=== PATIENT | female | born 2000 | race Hispanic/Latino ===

== ENCOUNTER 2023-01-18 16:49 | Emergency (ER) | payer BC ==
[~2023-01-18] VITALS: Ht 160 cm; Wt 63.5 kg
[2023-01-18] MEDS ORDERED: ONDANSETRON ODT 4MG TAB SL ONE (18:00)
[2023-01-18] MEDS ORDERED: MORPHINE 4 MG SYG IM ONE (18:00)
[2023-01-18 18:34] VITALS: BP 133/71
[2023-01-18] MEDS ORDERED: NAPR-1023 PO (18:44)
== END 2023-01-18 19:02 | disposition home or self-care (01) ==
LOC: EDH 16:49
DX: S93.402A Sprain of unspecified ligament of left ankle, initial encounter (principal); M19.90 Unspecified osteoarthritis, unspecified site; X50.1XXA Overexertion from prolonged static or awkward postures, initial encounter; Y93.89 Activity, other specified; Y92.89 Other specified places as the place of occurrence of the external cause; Y99.8 Other external cause status
CPT/HCPCS: 99284; 81025; 73600; 73630; 73590; 96372; J2270

== ENCOUNTER 2025-08-29 23:31 | Emergency (ER) | payer BC ==
[~2025-08-29] VITALS: Ht 162.6 cm; Wt 68.0 kg
[~2025-08-29 23:31] MED LIST: NAPR-1194 PO
--- NOTE | 2025-08-29 23:36 | NUR ---
UA CUP PROVIDED
[2025-08-30] MEDS: 0.9%NACL 1000ML 1,000 ML IV ONE (00:19)
[2025-08-30 00:30] LABS: APPEARANCE,URINE CLOUDY (CLEAR); GLUCOSE, URINE (UA) NEGATIVE (NEGATIVE); LEUKOCYTE ESTERASE ,URINE NEGATIVE Leu/uL (NEGATIVE); NITRATE,URINE NEGATIVE (NEGATIVE); OCCULT BLOOD,URINE NEGATIVE (NEGATIVE)
[2025-08-30 00:31] LABS: ADD UA MICROSCOPIC YES
[2025-08-30 00:33] LABS: CREATININE 0.6 mg/dL (0.5-1.0); GLOMERULAR FILTR. RATE CALC 129.0 mL/min (>90); GLUCOSE,RANDOM 96.0 mg/dL (70-105); IMMATURE GRANULOCYTE ABSOLUTE 0.03 K/uL (0-1); NUCLEATED RED BLOOD CELLS 0.0 % (0.0-0.19); PLATELET COUNT (AUTO) 218 K/uL (130-400); RED BLOOD CELL COUNT(AUTO) 4.42 MIL/uL (4.00-5.50); RED CELL DISTRIBUTION WIDTH 12.9 % (11.0-15.5); SODIUM SERUM 139.0 mmol/L (136-145); UREA NITROGEN, BLOOD 6.0 mg/dL (7-18); WHITE BLOOD COUNT (AUTO) 8.3 K/uL (4.8-10.8)
[2025-08-30 00:37] LABS: HCG,QUALITATIVE URINE NEGATIVE (NEGATIVE); SQUAMOUS EPITHELIAL CELL,UR RARE /HPF (0-2)
--- NOTE | 2025-08-30 00:54 | ERN ---
ED Note History of Present Illness Stated Complaint: RT LOWER QUADRANT PAIN, N/V/D, UA PAIN Chief Complaint: Multiple Complaints Time Seen by MD: 23:38 Time Seen by Midlevel: 23:38 Dictation: The patient is a 25-year-old female with no significant past medical history who presents to the emergency department with complaints of right lower abdominal pain onset today around 3:00 p.m.. Patient reports nausea nonbloody vomiting. Reports she initially had diarrhea but no she reports she has not had a bowel movement. Patient also reports an episode of hematuria. Denies any fevers. Allergies: Coded Allergies: No Known Drug Allergies (Unverified Allergy, Unknown, 01/18/23) Home Meds Active Scripts Naproxen (Naproxen) 500 Mg Tablet, 500 MG PO BIDAC for pain for 14 Days, #28 TAB Prov:ALAN ESCOBAR PAC 01/18/23 Past Medical History Past Medical History: No Pertinent History Surgical History: None LMP: Aug 18, 2025 RN Note Reviewed/Agreed w/PFSH: Yes Review of System Dictation Constitutional: Negative for fever,chills, and weight loss Eyes: Negative for injury, pain,redness, and discharge ENT: Negative for injury,pain or swelling Cardiovascular: Negative for chest pain, palpitations, and edema Respiratory: Negative for shortness of breath, cough, and wheezing, Abdomen/GI: Negative for diarrhea, and constipation positive positive for abdominal pain, nausea, vomiting Back: Negative for injury and pain : Negative for injury, and discharge positive for hematuria MS/Extremity: Negative for injury and deformity Skin: Negative for rash, and discoloration Neuro: Negative for headache, weakness, numbness, tingling, and seizure Psych: Negative for suicide ideation, homicidal ideation, and hallucinations Initial Vital Sign VS Vital Signs Date Time Temp Pulse Resp B/P (MAP) Pulse Ox O2 Delivery O2 Flow Rate FiO2 08/29/25 23:36 97.7 90 20 130/82 98 Room Air 08/30/25 00:00 0 21 Physical Exam Dictation Vital Signs reviewed General Appearance: Alert, oriented x 3, no acute distress, well developed, nourished. Head and Face: non-traumatic. Eyes: PERRL, pink conjunctivas, eyelid no trauma, anterior chamber with arcus senilis. Ears: Pinnas intact and no signs of trauma or erythema ear canals clear and no discharge TM no erythema Nose: No discharge, no bleeding. Oropharynx: Mouth normal, tongue pink. pharynx clear,no erythema, tonsils no exudates, no abscesses noted, mucous membrane moist Neck: Supple, non-tender, no thyromegaly, no masses, no JVD, no bruits Breast:Deferred Chest:No tenderness, no crepitus, no paradoxical movement, no retractions Lungs:Clear, well-ventilated, symmetric, no rales, no wheezing, no rhonchi, no stridor, good breath sounds bilaterally Heart: Regular rate, regular rhythm, no murmur, no gallops Vascular: no peripheral edema, Abdomen: Soft, positive bowel sounds, nondistended, no guarding, Right lower quadrant tenderness, no rebound, no masses no hepatomegaly, no splenomegaly, no Goldsmith's sign, no hernias. Rectal: Deferred Genital: Deferred Neurological: Normal speech, motor function intact, sensory function intact Musculoskeletal: Neck nontender, full range of motion, back nontender, full range of motion, Extremities: nontender, full range of motion Skin: Color pink, dry, no turgor, no rash, no lacerations, no abrasions, no c ontusions. Lymphatic: Deferred Results (Laboratory/Radiology) Laboratory/Radiology Laboratory Tests Test 08/29/25 23:45 08/30/25 00:02 Urine Color LIGHT-YELLOW (YELLOW) Urine Appearance CLOUDY (CLEAR) H Urine pH 8.0 (5.0-8.0) Urine Specific [place] 1.011 (1.001-1.031) Urine Protein NEGATIVE mg/dL (NEGATIVE) Urine Glucose (UA) NEGATIVE mg/dL (NEGATIVE) Urine Ketones NEGATIVE mg/dL (NEGATIVE) Urine Occult Blood NEGATIVE (NEGATIVE) Urine Nitrate NEGATIVE (NEGATIVE) Urine Bilirubin NEGATIVE mg/dL (NEGATIVE) Urine Urobilinogen 0.2 mg/dL (0.2-1.0) Urine Leukocyte Esterase NEGATIVE Kiara/uL Urine RBC 0-1 /HPF (0-1) Urine WBC 0-1 /HPF (0-1) Urine Squamous Epithelial Cells RARE /HPF (0-2) Urine Amorphous Crystals (Auto) RARE /LPF (None Seen) Urine Bacteria RARE /HPF (None Seen) Urine HCG, Qualitative NEGATIVE (NEGATIVE) White Blood Count 8.3 K/uL (4.8-10.8) Red Blood Count 4.42 MIL/uL (4.00-5.50) Hemoglobin 14.0 g/dL (12.0-16.0) Hematocrit 41.3 % (36-48) Mean Corpuscular Volume 93.4 fL (79-99) Mean Corpuscular Hemoglobin 31.7 pg (27.0-33.0) Mean Corpuscular Hemoglobin Concent 33.9 g/dL (32.0-36.0) Red Cell Distribution Width 12.9 % (11.0-15.5) Platelet Count 218 K/uL (130-400) Mean Platelet Volume 11.1 fL (7.5-10.5) H Immature Granulocyte % (Auto) 0.4 % (0-1) Neutrophils (%) (Auto) 64.4 % (40.0-77.0) Lymphocytes (%) (Auto) 26.9 % (21.0-51.0) Monocytes (%) (Auto) 5.6 % (3.0-13.0) Eosinophils (%) (Auto) 2.3 % (0.0-8.0) Basophils (%) (Auto) 0.4 % (0.0-5.0) Neutrophils # (Auto) 5.4 K/uL (1.8-7.7) Lymphocytes # (Auto) 2.2 K/uL (1.0-4.8) Monocytes # (Auto) 0.5 K/uL (0.1-1.0) Eosinophils # (Auto) 0.19 K/uL (0.00-0.70) Basophils # (Auto) 0.03 K/uL (0.00-0.20) Absolute Immature Granulocyte (auto 0.03 K/uL (0-1) Nucleated Red Blood Cells 0.0 % (0.0-0.19) Sodium Level 139 mmol/L (136-145) Potassium Level 3.4 mmol/L (3.5-5.1) L Chloride Level 107 mmol/L (101-111) Carbon Dioxide Level 27 mmol/L (21-32) Blood Urea Nitrogen 6 mg/dL (7-18) L Creatinine 0.6 mg/dL (0.5-1.0) Glomerular Filtration Rate Calc 129 mL/min (>90) Random Glucose 96 mg/dL (70-105) Total Calcium 8.7 mg/dL (8.5-10.1) Labs Reviewed?: Yes CT Scan Comment: [facility] [address] [place] [address] IMAGING REPORT Signed PATIENT: LOURDES CASTELLANOS MR#: [id number] : 2000 SEX: F AGE: 25 LOCATION: [facility] ORDER STATUS: REG ER REPORT#: [id number] SERVICE REASON: Abdominal Pain, rlq ORDERING PHYSICIAN: MALLORY SZYMANSKI PROCEDURE: ABD PEL W - CT ABDOMEN/PELVIS W/CONTRAST EXAM: CT Abdomen and Pelvis with IV contrast CLINICAL HISTORY: Pain. Right lower quadrant pain. TECHNIQUE: Postcontrast thin collimated axial CT images of the abdomen and pelvis were obtained with sagittal and coronal reformatted images also submitted. CT scan is done according to ALARA (As Low As Reasonably Achievable). COMPARISON: None. FINDINGS: Calcified granuloma in the right lower lobe of the lung, right pulmonary hilum, and mediastinum. No focal abnormality within the liver, gallbladder, pancreas, spleen, adrenals, or kidneys. The urinary bladder is empty and suboptimally evaluated. The uterus and ovaries are within normal limits. No abnormal bowel wall thickening, dilatation, or obstruction. The small bowel loops are collapsed. A component of mild constipation is present in the colon. Unremarkable appendix. Grossly unremarkable abdominal vessels. No pathological lymphadenopathy in the abdomen or pelvis. No ascites or pneumoperitoneum. No acute bony abnormality is evident. Degenerative osseous changes. Nonspecific punctate calcification superior to the urinary bladder. IMPRESSIONS: No acute process in the abdomen or pelvis. A component of mild constipation is present in the colon. Calcified granuloma in the right lower lobe of the lung, right pulmonary hilum, and mediastinum. /[place] DICTATED BY: KALLIE MAHARAJ Jr., MD DATE: 08/30/25501 ELECTRONICALLY SIGNED BY: KALLIE MAHARAJ Jr., MD DATE: 12/27/25 0502 ED Course ED Course Orders Procedure Category Date Status Time Cbc With Differential LAB 08/29/25 Complete 23:56 ,Urine Test LAB 08/29/25 Complete 23:56 Urinalysis Profile LAB 08/29/25 Complete 23:56 Basic Metabolic Panel LAB 08/29/25 Complete 23:56 0.9%Nacl 1000ml (Ns PHA 08/30/25 Complete 1000ml) 00:30 Ondansetron 4mg Inj PHA 08/30/25 Complete (Zofran 4mg Inj) 00:30 Acetaminophen 500mg PHA 08/30/25 Complete Tab (Tylenol 500mg T 00:30 Ct Abdomen/Pelvis CT 08/30/25 Resulted W/Contrast 00:38 Potassium Bicarb/Cit PHA 08/30/25 Complete Ac 25meq (K-Lyte Ta 01:00 Iohexol (Omnipaque) PHA 08/30/25 Complete 02:51 Current Medications Medications (Trade) Dose Ordered Sig/Chato Route PRN Reason Start Time Stop Time Status Last Admin Dose Admin Acetaminophen (TYLenol 500MG TAB) 1,000 mg ONCE ONCE PO 08/30/25 00:30 08/30/25 00:31 DC 08/30/25 00:21 Iohexol (Omnipaque) 75 ml STK-MED ONCE IV 08/30/25 02:51 08/30/25 02:52 DC Ondansetron HCl (zoFRAN 4MG INJ) 4 mg ONCE ONCE IVP 08/30/25 00:30 08/30/25 00:31 DC 08/30/25 00:20 Potassium Bicarbonate (K-Lyte Tablet Eff 25 Meq Tablet.eff) 25 meq ONCE ONCE PO 08/30/25 01:00 08/30/25 01:01 DC 08/30/25 01:26 Sodium Chloride 1,000 ml @ 0 mls/hr ONCE ONCE IV 08/30/25 00:30 08/30/25 00:31 DC 08/30/25 00:19 Vital Signs Date Time Temp Pulse Resp B/P (MAP) Pulse Ox O2 Delivery O2 Flow Rate FiO2 08/30/25 00:00 98.4 80 22 114/75 97 Room Air* 0 21 08/29/25 23:36 97.7 90 20 130/82 98 Room Air Medical Decision Making MDM The patient is a 25-year-old female with no significant past medical history who presents to the emergency department with complaints of right lower abdominal pain onset today around 3:00 p.m.. Patient reports nausea nonbloody vomiting. Reports she initially had diarrhea but no she reports she has not had a bowel movement. Patient also reports an episode of hematuria. Denies any fevers. He has a has been shows constipation. Patient will be discharged in stable condition with a diagnosis of constipation. DX & DISP Disposition: Discharge Departure Impression: Primary Impression: Constipation Condition: Stable Scripts Lactulose (Lactulose) 10 Gram/15 Ml Solution 30 ML PO DAILY for constipation, #900 ML 0 Refills Prov: SHAYLA MENESES MD 08/30/25 Additional Instructions: FOLLOW-UP WITH PRIMARY CARE PROVIDER IN 1 TO 2 DAYS. TAKE MEDICATIONS DIRECTED HERE IN THE EMERGENCY ROOM. OKAY TO CONTINUE HOME MEDICATIONS UNLESS OTHERWISE DISCUSSED DURING YOUR VISIT IN THE EMERGENCY ROOM TODAY. RETURN TO YOUR NEAREST EMERGENCY ROOM IF SYMPTOMS WORSEN OR IF THERE IS NO IMPROVEMENT. CALL 911 IF YOU NEED IMMEDIATE ASSISTANCE. TAKE TYLENOL [id number] NEEDED AND IF NO CONTRAINDICATIONS ARE PRESENT. INCREASE ORAL HYDRATION. A WOUND CULTURE OR URINE CULTURE WAS ORDERED HERE IN THE EMERGENCY ROOM DEPARTMENT PLEASE FOLLOW-UP WITH PRIMARY CARE PROVIDER AND ADVISE THEM TO GET REPORTS FROM OUR FACILITY. IF YOU HAD ANY FILOMENA WRAP/SPLINTS THAT WERE APPLIED HERE, PLEASE DO NOT REMOVE THEM UNTIL YOU SEE YOUR PRIMARY CARE OR SPECIALTY. Referrals: Referrals: NONE (PCP) JAMES CATES MD Time of Disposition: 04:46 MALLORY SZYMANSKI Aug 30, 2025 00:54 SHAYLA MENESES MD Aug 30, 2025 04:48
[2025-08-30] MEDS ORDERED: IOHEXOL-350 75 ML VIAL IV ONE (02:51)
--- NOTE | 2025-08-30 04:03 | HMCIMG ---
EXAM: CT Abdomen and Pelvis with IV contrast CLINICAL HISTORY: Pain. Right lower quadrant pain. TECHNIQUE: Postcontrast thin collimated axial CT images of the abdomen and pelvis were obtained with sagittal and coronal reformatted images also submitted. CT scan is done according to ALARA (As Low As Reasonably Achievable). COMPARISON: None. FINDINGS: Calcified granuloma in the right lower lobe of the lung, right pulmonary hilum, and mediastinum. No focal abnormality within the liver, gallbladder, pancreas, spleen, adrenals, or kidneys. The urinary bladder is empty and suboptimally evaluated. The uterus and ovaries are within normal limits. No abnormal bowel wall thickening, dilatation, or obstruction. The small bowel loops are collapsed. A component of mild constipation is present in the colon. Unremarkable appendix. Grossly unremarkable abdominal vessels. No pathological lymphadenopathy in the abdomen or pelvis. No ascites or pneumoperitoneum. No acute bony abnormality is evident. Degenerative osseous changes. Nonspecific punctate calcification superior to the urinary bladder. IMPRESSIONS: No acute process in the abdomen or pelvis. A component of mild constipation is present in the colon. Calcified granuloma in the right lower lobe of the lung, right pulmonary hilum, and mediastinum. /[place]
[2025-08-30] MEDS ORDERED: LACT10SO85 PO (04:47)
[2025-08-30 05:00] VITALS: BP 115/75; PULSE 69; RESP 22; TEMP 98.2; O2SAT 97
== END 2025-08-30 05:08 | disposition home or self-care (01) ==
LOC: EDH 23:31
DX: K59.00 Constipation, unspecified (principal); R11.2 Nausea with vomiting, unspecified; R31.9 Hematuria, unspecified
CPT/HCPCS: 99284; 80048; 85025; 81001; 81025; 36415; 74177; 96374; 96361; J7030; J2405; Q9967